=== PATIENT | female | born 1970 | race Hispanic/Latino ===

== ENCOUNTER 2021-06-06 14:14 | Inpatient (IN) | payer BC, OTHER ==
[~2021-06-06] VITALS: Ht 152.4 cm; Wt 62.6 kg
[2021-06-06] MEDS ORDERED: MORPHINE 4 MG SYG IV ONE ×2 (15:30→16:30)
[2021-06-06] MEDS ORDERED: FAMOTIDINE 20MG VIAL IV ONE (15:30)
[2021-06-06] MEDS ORDERED: ONDANSETRON 4MG INJ IVP ONE (15:30)
[2021-06-06] MEDS ORDERED: 0.9%NACL 1000ML 1,000 ML IV ONE (15:30)
[2021-06-06 15:33] LABS: APPEARANCE,URINE Clear (CLEAR); BILIRUBIN,URINE Negative (NEGATIVE); COLOR,URINE Yellow (YELLOW); GLUCOSE, URINE (UA) >=1000 mg/dL (NEGATIVE); KETONES,URINE >=80 mg/dL (NEGATIVE); LEUKOCYTE ESTERASE ,URINE Negative (NEGATIVE); NITRATE,URINE Negative (NEGATIVE); OCCULT BLOOD,URINE Negative (NEGATIVE); PROTEIN,URINE Negative (NEGATIVE)
[2021-06-06 15:42] LABS: BASOPHILS % (AUTO) 0.2 % (0.0-5.0); HEMATOCRIT 42.9 % (36-48); LYMPHOCYTES % (AUTO) 5.7 % (21.0-51.0); MEAN CORPUSCULAR HEMOGLOBIN 31.2 pg (27.0-33.0); MEAN CORPUSCULAR HGB CONC 33.6 g/dL (32.0-36.0); MEAN CORPUSCULAR VOLUME 92.9 fL (79-99); MONOCYTES % (AUTO) 6.1 % (3.0-13.0); NEUTROPHILS % (AUTO) 87.7 % (40.0-77.0); PLATELET COUNT (AUTO) 386 K/uL (130-400); RED BLOOD CELL COUNT(AUTO) 4.62 MIL/uL (4.00-5.50); RED CELL DISTRIBUTION WIDTH 12.8 % (11.0-15.5); WHITE BLOOD COUNT (AUTO) 17.6 K/uL (4.8-10.8)
[2021-06-06 15:58] LABS: BACTERIA,URINE Rare /HPF (None Seen); MUCUS,URINE Few LPF (None Seen); RBC,URINE 0-1 /HPF (0-1); SQUAMOUS EPITHELIAL CELL,UR Few /HPF (0-2); WBC,URINE 0-1 /HPF (0-1); YEAST,URINE BUDDING Few /HPF (None Seen)
[2021-06-06 16:04] LABS: ALBUMIN 3.9 g/dL (3.5-5.0); BILIRUBIN,TOTAL 1.8 mg/dL (0.2-1.0); CREATININE 0.9 mg/dL (0.5-1.5); POTASSIUM 4.7 mmol/L (3.5-5.1); TOTAL PROTEIN, SERUM 8.4 g/dL (6.0-8.3)
[2021-06-06] MEDS ORDERED: IOHEXOL 350 MG/ML 100ML INFUS..BTL IV ONE (16:39)
[2021-06-06] MEDS ORDERED: ZOSYN 3.375GM +NS 50ML IV SCH (17:30)
[2021-06-06] MEDS ORDERED: INSULIN HUMULIN R 100 UNIT/ML 3ML SQ ONE (17:30)
[2021-06-06] MEDS ORDERED: 0.9% NACL 500ML IV.SOLN 500 ML IV ONE (17:30)
[2021-06-06 18:17] LABS: HEMOGLOBIN A1C 12.8 % (4.0-6.0)
[2021-06-06 18:33] LABS: ABG BASE EXCESS -5.9 mmol/L (-2.0-3.0); ABG OXYGEN SATURATION 93.4 % (95.0-99.0); ABG PCO2 41 mmHg (32-45)
[2021-06-06] MEDS ORDERED: ONDANSETRON 4MG INJ IV PRN (19:00)
[2021-06-06] MEDS ORDERED: HYDROMORPHONE 0.5 MG SYG (0.5MG/0.5ML) IV PRN (19:00)
[2021-06-06 19:31] LABS: AMPHET/METH SCREEN,URINE NEGATIVE (NEGATIVE); BARBITURATE SCREEN, URINE NEGATIVE (NEGATIVE); BENZODIAZEPINES SCREEN,URINE NEGATIVE (NEGATIVE); CANNABINOID SCREEN,URINE NEGATIVE (NEGATIVE); COCAINE SCREEN,URINE NEGATIVE (NEGATIVE); OPIATE SCREEN,URINE NEGATIVE (NEGATIVE); PHENCYCLIDINE SCREEN,URINE NEGATIVE (NEGATIVE)
[2021-06-06 20:42] LABS: THYROID STIMULATING HORMONE 1.13 uIU/mL (0.36-3.74)
[2021-06-06 20:43] LABS: CHOLESTEROL 172 mg/dL (<200); HDL CHOLESTEROL 34 mg/dL (35-85); LDL DIRECT 111 mg/dL (0-99); TRIGLYCERIDES 63 mg/dL (30-200)
[2021-06-06] MEDS ORDERED: INSULIN HUMULIN R 100 UNIT/ML 3ML SQ SCH (21:00)
[2021-06-06 21:02] LABS: ACETAMINOPHEN < 1 mcg/mL (10-30); ALCOHOL, BLOOD < 3 mg/dL (0-10); SALICYLATE < 2.8 mg/dL (2.8-20.0)
[2021-06-06 21:05] LABS: INR 0.97 (0.85-1.15); PROTHROMBIN TIME 10.6 SEC (9.6-11.6)
[2021-06-06] MEDS: 0.9%NACL 1000ML 1,000 ML IV SCH ×2 (21:25→23:54)
[2021-06-06] MEDS: INSULIN GLARGINE 100 UNITS/ML 10 ML VIAL SQ SCH (21:26)
[2021-06-06] MEDS: FAMOTIDINE 20MG VIAL IV SCH (21:26)
[2021-06-06 22:30] VITALS: BP 139/78
[2021-06-06] MEDS: MORPHINE 2 MG SYG IV PRN (23:07)
[2021-06-06] MEDS: INSULIN HUMULIN R 100 UNIT/ML 3ML SQ SCH (23:54)
[2021-06-07] MEDS: ZOSYN 3.375GM+NS 50ML 50 ML IV SCH ×3 (00:58→17:50)
[2021-06-07 03:20] LABS: HEPATITIS B SURFACE ANTIGEN Non-Reactive (Negative)
[2021-06-07 03:21] LABS: HEPATITIS A IGM ANTIBODY Non-Reactive (Negative); HEPATITIS B CORE IGM ANTIBODY Non-Reactive (Negative); HEPATITIS C ANTIBODY Non-Reactive (NEGATIVE)
[2021-06-07] MEDS: 0.9%NACL 1000ML 1,000 ML IV SCH ×4 (04:12→19:51)
[2021-06-07 05:16] VITALS: BP 119/69
[2021-06-07 05:20] LABS: BASOPHILS % (AUTO) 0.2 % (0.0-5.0); HEMATOCRIT 37.9 % (36-48); LYMPHOCYTES % (AUTO) 10.1 % (21.0-51.0); MEAN CORPUSCULAR HEMOGLOBIN 31.2 pg (27.0-33.0); MEAN CORPUSCULAR HGB CONC 33.2 g/dL (32.0-36.0); MEAN CORPUSCULAR VOLUME 93.8 fL (79-99); MONOCYTES % (AUTO) 9.5 % (3.0-13.0); NEUTROPHILS % (AUTO) 79.9 % (40.0-77.0); PLATELET COUNT (AUTO) 336 K/uL (130-400); RED BLOOD CELL COUNT(AUTO) 4.04 MIL/uL (4.00-5.50); RED CELL DISTRIBUTION WIDTH 13.2 % (11.0-15.5); WHITE BLOOD COUNT (AUTO) 13.3 K/uL (4.8-10.8)
[2021-06-07 05:30] LABS: CREATININE 0.7 mg/dL (0.5-1.5); PHOSPHORUS 3.5 mg/dL (2.5-4.9); POTASSIUM 3.6 mmol/L (3.5-5.1)
[2021-06-07] MEDS: INSULIN HUMULIN R 100 UNIT/ML 3ML SQ SCH ×4 (06:04→23:07)
[2021-06-07 08:00] VITALS: BP 121/68
[2021-06-07] MEDS: ENOXAPARIN SODIUM 40 MG/0.4 ML SYRINGE SQ SCH (10:10)
[2021-06-07] MEDS: FAMOTIDINE 20MG VIAL IV SCH ×2 (10:10→19:51)
[2021-06-07] MEDS: MORPHINE 2 MG SYG IV PRN ×2 (10:17→23:07)
[2021-06-07 11:55] VITALS: BP 122/67
[2021-06-07 14:51] LABS: BILIRUBIN,DIRECT 0.6 mg/dL (0.0-0.3); BILIRUBIN,TOTAL 1.5 mg/dL (0.2-1.0); TOTAL PROTEIN, SERUM 6.7 g/dL (6.0-8.3)
[2021-06-07 16:00] VITALS: BP 125/70
[2021-06-07 19:45] VITALS: BP 135/77
[2021-06-07] MEDS: INSULIN GLARGINE 100 UNITS/ML 10 ML VIAL SQ SCH (19:54)
[2021-06-07 23:33] VITALS: BP 124/64
[2021-06-08] MEDS: ZOSYN 3.375GM+NS 50ML 50 ML IV SCH ×3 (01:07→18:19)
[2021-06-08] MEDS: 0.9%NACL 1000ML 1,000 ML IV SCH ×2 (03:52→18:20)
[2021-06-08 04:14] LABS: HEMATOCRIT 34.4 % (36-48); MEAN CORPUSCULAR HEMOGLOBIN 31.2 pg (27.0-33.0); MEAN CORPUSCULAR HGB CONC 32.8 g/dL (32.0-36.0); RED BLOOD CELL COUNT(AUTO) 3.62 MIL/uL (4.00-5.50); RED CELL DISTRIBUTION WIDTH 13.4 % (11.0-15.5); WHITE BLOOD COUNT (AUTO) 14.7 K/uL (4.8-10.8)
[2021-06-08 04:16] VITALS: BP 119/59
[2021-06-08 04:34] LABS: ALBUMIN 2.5 g/dL (3.5-5.0); BILIRUBIN,TOTAL 0.9 mg/dL (0.2-1.0); CREATININE 0.5 mg/dL (0.5-1.5); POTASSIUM 3.2 mmol/L (3.5-5.1)
[2021-06-08] MEDS: INSULIN HUMULIN R 100 UNIT/ML 3ML SQ SCH ×3 (05:54→18:00)
[2021-06-08] MEDS: FAMOTIDINE 20MG VIAL IV SCH ×2 (07:35→20:54)
[2021-06-08] MEDS: ENOXAPARIN SODIUM 40 MG/0.4 ML SYRINGE SQ SCH (07:36)
[2021-06-08 08:00] VITALS: BP 121/67
[2021-06-08] MEDS ORDERED: KETOROLAC 15MG/ML VIAL (15MG/ML) IV PRN (09:00)
[2021-06-08] MEDS: POTASSIUM CHLORIDE 20MEQ/100ML 100 ML IV PRN ×2 (10:58→21:00)
[2021-06-08] MEDS: LIDOCAINE HCL-MPF 1% 2ML VIAL IV PRN ×2 (10:59→21:00)
[2021-06-08] MEDS: MORPHINE 2 MG SYG IV PRN (11:20)
[2021-06-08 12:00] VITALS: BP 135/71
[2021-06-08 16:00] VITALS: BP 126/69
[2021-06-08 19:56] VITALS: BP 128/71
[2021-06-08] MEDS: INSULIN GLARGINE 100 UNITS/ML 10 ML VIAL SQ SCH (20:55)
[2021-06-08 23:30] VITALS: BP 129/67
[2021-06-09] MEDS: 0.9%NACL 1000ML 1,000 ML IV SCH ×2 (01:29→04:50)
[2021-06-09] MEDS: ZOSYN 3.375GM+NS 50ML 50 ML IV SCH ×2 (01:29→11:18)
[2021-06-09 04:09] VITALS: BP 129/66
[2021-06-09 04:10] LABS: HEMATOCRIT 32.2 % (36-48); MEAN CORPUSCULAR HGB CONC 33.2 g/dL (32.0-36.0); MEAN CORPUSCULAR VOLUME 93.3 fL (79-99); RED BLOOD CELL COUNT(AUTO) 3.45 MIL/uL (4.00-5.50); RED CELL DISTRIBUTION WIDTH 13.3 % (11.0-15.5); WHITE BLOOD COUNT (AUTO) 16.4 K/uL (4.8-10.8)
[2021-06-09 04:21] LABS: ALBUMIN 2.3 g/dL (3.5-5.0); BILIRUBIN,TOTAL 0.8 mg/dL (0.2-1.0); CREATININE 0.5 mg/dL (0.5-1.5); POTASSIUM 3.1 mmol/L (3.5-5.1); TOTAL PROTEIN, SERUM 6.2 g/dL (6.0-8.3)
[2021-06-09] MEDS: LIDOCAINE HCL-MPF 1% 2ML VIAL IV PRN ×2 (05:13→09:06)
[2021-06-09] MEDS: POTASSIUM CHLORIDE 20MEQ/100ML 100 ML IV PRN ×2 (05:13→09:06)
[2021-06-09] MEDS: INSULIN HUMULIN R 100 UNIT/ML 3ML SQ SCH ×3 (05:31→11:58)
[2021-06-09 08:00] VITALS: BP 129/70
[2021-06-09] MEDS: ENOXAPARIN SODIUM 40 MG/0.4 ML SYRINGE SQ SCH (08:46)
[2021-06-09] MEDS: FAMOTIDINE 20MG VIAL IV SCH (08:46)
[2021-06-09] MEDS ORDERED: LIPA1CAP18 PO (09:17)
[2021-06-09] MEDS ORDERED: LEVO750T46 PO (09:17)
[2021-06-09 12:00] VITALS: BP 129/68
[2021-06-09] MEDS ORDERED: LIPASE/PROTEASE/AMYLASE 5000/17000/24000 PO SCH (12:00)
== END 2021-06-09 15:55 | disposition home or self-care (01) | DRG 438 ==
LOC: EDH 14:14 → EDHIP 18:41 → 4AH 22:18
PROVIDERS: ADMIT Hospitalist; ATTEND Hospitalist
DX: K85.90 Acute pancreatitis without necrosis or infection, unspecified (principal); E11.00 Type 2 diabetes mellitus with hyperosmolarity without nonketotic hyperglycemic-hyperosmolar coma (NKHHC); D72.829 Elevated white blood cell count, unspecified; R74.01 Elevation of levels of liver transaminase levels; E87.6 Hypokalemia; Z80.9 Family history of malignant neoplasm, unspecified; Z90.49 Acquired absence of other specified parts of digestive tract
CPT/HCPCS: 36415; 36600; 74177; 74181; 80048; 80053; 80061; 80074; 80076; 80305; 81001; 82010; 82140; 82435; 82803; 82947; 82948; 83036; 83605; 83690; 83735; 84100; 84132; 84145; 84295; 84443; 84478; 85018; 85025; 85027; 85610; 87040; G0378; G0481; J1170; J1650; J1815; J2270; J2405; J2543; J3480; J3490; J7030; J7040; Q9967

== ENCOUNTER 2022-03-21 20:46 | Emergency (ER) | payer BC ==
[~2022-03-21] VITALS: Ht 152.4 cm; Wt 71.2 kg
[~2022-03-21 20:46] MED LIST: LEVO750T68 PO; LIPA1CAP18 PO
[2022-03-21 20:48] VITALS: BP 146/71
[2022-03-21 21:37] LABS: BASOPHILS % (AUTO) 0.4 % (0.0-5.0); EOSINOPHILS % (AUTO) 1.1 % (0.0-8.0); HEMATOCRIT 35.7 % (36-48); LYMPHOCYTES % (AUTO) 30.9 % (21.0-51.0); MEAN CORPUSCULAR HEMOGLOBIN 31.5 pg (27.0-33.0); MEAN CORPUSCULAR HGB CONC 34.7 g/dL (32.0-36.0); MEAN CORPUSCULAR VOLUME 90.6 fL (79-99); MONOCYTES % (AUTO) 11.1 % (3.0-13.0); NEUTROPHILS % (AUTO) 56.2 % (40.0-77.0); PLATELET COUNT (AUTO) 371 K/uL (130-400); RED BLOOD CELL COUNT(AUTO) 3.94 MIL/uL (4.00-5.50); RED CELL DISTRIBUTION WIDTH 13.3 % (11.0-15.5); WHITE BLOOD COUNT (AUTO) 8.9 K/uL (4.8-10.8)
[2022-03-21 21:38] LABS: APPEARANCE,URINE CLOUDY (CLEAR); BILIRUBIN,URINE NEGATIVE (NEGATIVE); COLOR,URINE YELLOW (YELLOW); GLUCOSE, URINE (UA) NEGATIVE (NEGATIVE); KETONES,URINE NEGATIVE (NEGATIVE); LEUKOCYTE ESTERASE ,URINE 500 Leu/uL (NEGATIVE); NITRATE,URINE NEGATIVE (NEGATIVE); PROTEIN,URINE NEGATIVE (NEGATIVE); UROBILINOGEN,URINE 0.2 mg/dL (0.2-1.0)
[2022-03-21 21:41] LABS: BACTERIA,URINE FEW /HPF (None Seen); MUCUS,URINE RARE LPF (None Seen); SQUAMOUS EPITHELIAL CELL,UR FEW /HPF (0-2); WBC,URINE 51-100 /HPF (0-1)
[2022-03-21 21:46] LABS: CREATININE 0.8 mg/dL (0.5-1.5); POTASSIUM 3.7 mmol/L (3.5-5.1)
[2022-03-21] MEDS ORDERED: MORPHINE 4 MG SYG ONE (21:49)
[2022-03-21] MEDS ORDERED: ONDANSETRON 4MG INJ ONE (21:49)
[2022-03-21] MEDS ORDERED: 0.9%NACL 1000ML 1,000 ML IV ONE ×2 (21:50→22:00)
[2022-03-21 21:51] LABS: ALBUMIN 3.3 g/dL (3.5-5.0); TOTAL PROTEIN, SERUM 7.5 g/dL (6.0-8.3)
[2022-03-21] MEDS ORDERED: MORPHINE 4 MG SYG IVP ONE (22:00)
[2022-03-21] MEDS ORDERED: ONDANSETRON 4MG INJ IVP ONE (22:00)
[2022-03-21] MEDS ORDERED: TAMS-1 PO (23:20)
[2022-03-21] MEDS ORDERED: SULF1TAB42 PO (23:20)
== END 2022-03-22 00:15 | disposition home or self-care (01) ==
LOC: EDH 20:46
DX: N20.0 Calculus of kidney (principal); N39.0 Urinary tract infection, site not specified; N23 Unspecified renal colic; E11.9 Type 2 diabetes mellitus without complications; Z90.49 Acquired absence of other specified parts of digestive tract; Z98.890 Other specified postprocedural states
CPT/HCPCS: 99284; 74176; 96374; 96361; 96375; 80053; 85025; 87088; 81001; 36415; J7030; J2405; J2270